=== PATIENT | male | born 1990 | race American Indian/Alaskan Native ===

== ENCOUNTER 2020-09-16 16:18 | Emergency (ER) | payer SELFPAY ==
[2020-09-16 16:44] VITALS: BP 149/82
--- NOTE | 2020-09-16 18:12 | Emergency Department Report ---
Chief Complaint: GI Bleed Stated Complaint: RECTAL BLEEDING, DENTAL PAIN Time Seen by Provider: 09/16/20 18:08 - HPI History of Present Illness: 29-year-old male patient presents to the emergency department with complaints of rectal bleeding and dental pain for 5 years. Symptoms are no different today. He has never seen a physician or dentist for these issues. He has never taken medication for these issues. He is here today because "he called the police to help him get medicine, the police called the paramedics, the paramedics told him he needed to find a doctor, and brought him here." Patient has no other complaints. - ROS Review of Systems: GENERAL: Negative for fever. ENT: Positive for dental pain. CARDIOVASCULAR: Negative for chest pain. PULMONARY: Negative for shortness of breath. GASTROINTESTINAL: Positive for rectal bleeding. MUSCULOSKELETAL: Negative for back pain. NEUROLOGICAL: Negative for headache. INTEGUMENTARY: Negative for rash. - Exam Vital Signs: Vital Signs 09/16/20 09/16/20 16:40 16:44 Temperature 99.1 F Pulse Rate 85 Respiratory 20 Rate Blood Pressure 149/82 O2 Sat by Pulse 97 Oximetry Physical Exam: General: Awake, appropriately interactive, no acute distress. Eyes: Normal conjunctiva. Dental: Oral mucosa is moist. The gingiva appear normal. No fluctuance or evidence of periapical abscess. Sublingual, submental, and submandibular spaces all soft, without edema. No evidence for maxillary or buccal space abscess. No trismus. Patient is speaking in full sentences and handling secretions without difficulty. Neck: Supple. Full range of motion intact. Cardiovascular: Normal peripheral perfusion. Pulmonary: No respiratory distress. Patient is speaking normally without use of accessory muscles. Skin: No apparent rashes or lesions. Neurological: No facial asymmetry. Speech is clear. Follows commands. Patient is alert and oriented. Musculoskeletal: Moves all four extremities spontaneously with normal range of motion. Psych: Cooperative. Appropriate mood and affect. MSE screening note: Focused history and physical exam performed. Due to findings the following was ordered: ED Medical Decision Making - Medical Decision Making Patient presents emergency department via EMS with complaints of rectal bleeding and dental pain for 5 years. Symptoms are no different today. He was reportedly brought here by paramedics to establish care with a doctor. He is afebrile. Vital signs are stable. No clinical evidence to suggest anemia, hemorrhagic shock, systemic infection, airway obstruction, or any other emergent medical condition warranting immediate diagnostic work-up. Patient will be discharged home with referral to primary care provider, gastroenterology, and dentist. Emphasized importance of calling tomorrow to establish care for definitive management of ongoing issues. Patient expressed understanding and is agreeable to plan of care. Strict return precautions provided. BILLING/CODING: This patient encounter does not represent a certified medical emergency. ED Disposition for MSE Clinical Impression: Encounter for medical screening examination Disposition: MED SCREENING EXAM-LEFT Is pt being admited?: No Does the pt Need Aspirin: No Condition: Stable Instructions: Medical Screening Exam Additional Instructions: Follow-up with primary care provider this week. Call tomorrow to schedule an appointment. Follow-up with automatic lump making machine tender this week. Call tomorrow to schedule an appointment. Follow-up with dentist this week. Call tomorrow to schedule appointment. You must contact these providers in order to arrange for definitive management of ongoing medical problems. See referral information below. Return to the emergency department immediately for new or worsening symptoms. Referrals: DESIRAE MANZO MD [Staff Physician] - 3-5 Days [facility] [Provider Group] - 3-5 Days [facility] [Provider Group] - 3-5 Days [facility] [Outside] - 3-5 Days [facility] [Outside] - 3-5 Days [facility] [Outside] - 3-5 Days Time of Disposition: 18:14
== END 2020-09-16 19:30 | disposition left against medical advice (07) ==
LOC: ED 16:18
DX: K62.5 Hemorrhage of anus and rectum (principal); K08.89 Other specified disorders of teeth and supporting structures; Z53.21 Procedure and treatment not carried out due to patient leaving prior to being seen by health care provider